=== PATIENT | male | born 1955 | race American Indian/Alaskan Native ===

== ENCOUNTER 2017-06-21 12:13 | Outpatient (CLI) | payer OTHER ==
--- NOTE | 2017-06-21 12:50 | XRay Report ---
RIGHT FOOT RADIOGRAPHS INDICATION: Foot pain. COMPARISON: None similar at this institution. FINDINGS: AP, oblique and lateral right foot radiographs suggest slight hallux valgus. Approximately 5 mm lateral ossific density at the proximal base of the proximal phalanx of the great toe may be degenerative versus a fracture, exact age indeterminate, though may be old. First MTP joint degenerative narrowing may also be present. Grossly unremarkable soft tissues. Dorsal and plantar calcaneal spurs. CONCLUSION: 1. Approximately 5 mm ossific density at the proximal lateral base of the right great toe proximal phalanx, possibly a fracture versus degenerative and may involve the first MTP joint space laterally. Directed clinical correlation recommended. 2. Few other degenerative changes noted, as above. Thank you for the opportunity to participate in this patient's care.
== END 2017-06-21 12:14 | disposition home or self-care (01) ==
LOC: SPVIMAG 12:13
PROVIDERS: ATTEND Orthopaedic Surgery
DX: M19.071 Primary osteoarthritis, right ankle and foot (principal); M77.31 Calcaneal spur, right foot